=== PATIENT | female | born 1950 | race African-American/Black ===

== ENCOUNTER 2024-03-15 07:51 | Emergency (ER) | payer MEDICARE, OTHER ==
[~2024-03-15] VITALS: Ht 154.9 cm; Wt 49.0 kg
[2024-03-15] MEDS: PANTOPRAZOLE 80 MG in IV NS 0.9% 500 ML IV ONE (08:30)
[2024-03-15] MEDS ORDERED: SERT25TA PO (09:00)
[2024-03-15] MEDS ORDERED: ATOR40TA PO (09:00)
[2024-03-15] MEDS ORDERED: OXYC5TAB3 PO (09:00)
[2024-03-15] MEDS ORDERED: HYDR100T27 PO (09:00)
[2024-03-15] MEDS ORDERED: SITA50TA PO (09:00)
[2024-03-15] MEDS ORDERED: AMLO5TAB4 PO (09:00)
[2024-03-15] MEDS: PANTOPRAZOLE 80 MG in IV NS 0.9% 100 ML IV ONE (09:10)
[2024-03-15] MEDS: IV NS 0.9% 1,000 ML BAG IV ONE (09:28)
[2024-03-15 09:31] LABS: BASOPHILS # (AUTO) 0.1 K/uL (0.0-0.2); BASOPHILS % (AUTO) 0.6 % (0.0-2.0); EOSINOPHILS % (AUTO) 0.1 % (0.0-6.0); HEMATOCRIT 30 % (33-45); HEMOGLOBIN 9.6 g/dL (11.5-14.8); LYMPHOCYTES # (AUTO) 1.1 K/uL (0.8-4.8); LYMPHOCYTES % (AUTO) 11.4 % (20.0-44.0); MEAN CORPUSCULAR HEMOGLOBIN 25 PG (26.0-33.0); MEAN CORPUSCULAR HGB CONC 33 g/dl (31.0-36.0); MEAN CORPUSCULAR VOLUME 76 fL (82-100); MONOCYTES # (AUTO) 0.6 K/uL (0.1-1.30); MONOCYTES % (AUTO) 5.8 % (2.0-12.0); NEUTROPHILS # (AUTO) 7.9 K/uL (1.8-8.9); NEUTROPHILS % (AUTO) 82.1 % (43.0-81.0); PLATELET COUNT (AUTO) 528 K/uL (150-450); RED BLOOD CELL COUNT(AUTO) 3.89 MIL/uL (4.0-5.2); RED CELL DISTRIBUTION WIDTH 19.1 % (11.5-15.0); WHITE BLOOD COUNT (AUTO) 9.6 K/uL (4.3-11.0)
[2024-03-15 09:45] LABS: PROTHROMBIN TIME 11.9 SECS (9.2-11.1)
[2024-03-15 09:46] LABS: INR 1.13 (0.91-1.10); PARTIAL THROMBOPLASTIN TIME 25.4 SEC (24.3-34.3)
[2024-03-15 09:48] LABS: ALANINE AMINOTRANSFERASE 24 U/L (12-78); ALBUMIN 3.2 g/dL (3.4-5.0); ALKALINE PHOSPHATASE 54 U/L (46-116); ASPARTATE AMINOTRANSFERASE 27 U/L (15-37); BILIRUBIN,DIRECT 0.1 mg/dL (0.0-0.2); BILIRUBIN,TOTAL 0.3 mg/dL (0.2-1.0); CALCIUM, SERUM 9.8 mg/dL (8.5-10.1); CHLORIDE 102 mmol/L (98-107); CREATININE 0.9 mg/dL (0.6-1.3); GLUCOSE 177 mg/dL (74-106); LIPASE 41 U/L (16-77); POTASSIUM 3.4 mmol/L (3.5-5.1); SODIUM SERUM 145 mmol/L (136-145); TOTAL PROTEIN, SERUM 8.1 g/dL (6.4-8.2); UREA NITROGEN, BLOOD 24 mg/dL (7-18)
[2024-03-15 09:56] LABS: APPEARANCE,URINE CLEAR (CLEAR); BILIRUBIN,URINE NEGATIVE (NEGATIVE); BLOOD, URINE NEGATIVE Ery/uL (NEGATIVE); COLOR,URINE YELLOW (YELLOW); KETONES,URINE NEGATIVE (NEGATIVE); LEUKOCYTE ESTERASE ,URINE NEGATIVE (NEGATIVE); NITRITE, URINE NEGATIVE (NEGATIVE); PROTEIN,URINE 1+ mg/dl (NEGATIVE); UGLUCOSE NEGATIVE (NEGATIVE)
[2024-03-15] MEDS ORDERED: CEFTRIAXONE 1GM BAG (ER ONLY) 50 ML IV ONE (09:57)
[2024-03-15 10:00] LABS: CARBON DIOXIDE 36 mmol/L (21-32)
[2024-03-15] MEDS: CEFTRIAXONE 1GM BAG (ER ONLY) 1 GM/50 ML PIGGYBACK IV ONE (10:00)
[2024-03-15 10:15] LABS: LACTIC ACID 1.8 mmol/L (0.4-2.0)
[2024-03-15 10:19] LABS: ADD URINE CULTURE NO; BACTERIA,URINE None seen /HPF (None Seen); RBC,URINE NONE SEEN /HPF (0-2); WBC,URINE NONE SEEN /HPF (0-3)
[2024-03-15 10:20] LABS: SQUAMOUS EPITHELIAL CELL,UR None Seen /HPF (None Seen)
[2024-03-15] MEDS: ONDANSETRON HCL/PF - ER 4 MG/2 ML VIAL IV ONE (12:07)
[2024-03-15] MEDS ORDERED: ONDANSETRON HCL/PF 4 MG/2 ML VIAL ONE (12:07)
[2024-03-15 12:47] LABS: HEMOGLOBIN 9.6 g/dL (11.5-14.8)
[2024-03-15 15:31] VITALS: BP 110/60; TEMP 98; O2SAT 98
== END 2024-03-15 15:32 | disposition left against medical advice (07) ==
LOC: ER 08:16
DX: R11.2 Nausea with vomiting, unspecified (principal); D50.9 Iron deficiency anemia, unspecified; R00.0 Tachycardia, unspecified; K44.9 Diaphragmatic hernia without obstruction or gangrene; E11.9 Type 2 diabetes mellitus without complications; I48.91 Unspecified atrial fibrillation; Z79.899 Other long term (current) drug therapy; Z79.84 Long term (current) use of oral hypoglycemic drugs
CPT/HCPCS: 99285; 74177; 96366; 96365; 71045; 96375; 96368; 93005; 85025; 80048; 87040; 87086; 83605; 83690; 80076; 81001; 36415; 84484; 85730; 86850; 85027; J2405 ×2; J7030 ×2; J7040; J2470 ×2; J0696; A4223